=== PATIENT | female | born 1940 | race Two or more races ===

== ENCOUNTER 2019-03-01 12:41 | Emergency (ER) | payer MEDICARE, BC ==
[~2019-03-01] VITALS: Ht 154.9 cm; Wt 60.3 kg
[2019-03-01 13:33] LABS: Basophils # (auto) 0 uL; Basophils % (auto) 0.5 % (0.0-2.0); Eosinophils # (auto) 0.1 uL; Hematocrit 43.5 % (36.0-46.0); Hemoglobin 14.6 g/dL (12.2-16.2); Lymphocytes # (auto) 1.7 uL; Lymphocytes % (auto) 20.2 % (10.0-50.0); Mean Corpuscular Hemoglobin 31.1 pg (28.0-32.0); Mean Corpuscular Hgb Conc. 33.5 g/dL (32.0-36.0); Mean Corpuscular Volume 92.9 fL (80.0-100.0); Monocytes # (auto) 0.4 uL; Monocytes % (auto) 5.2 % (0.0-12.0); Neutrophils # (auto) 6.1 uL; Neutrophils % (auto) 73.1 % (37.0-80.0); Platelet Count (auto) 175 10^3/uL (140-450); Red Blood Cells 4.69 10^6/uL (4.0-5.20); Red Cell Distribution Width 15.1 % (11.8-14.3); White Blood Cell 8.3 10^3/uL (4.4-10.8)
[2019-03-01 13:53] LABS: Alanine Aminotransferase 24 U/L (13-56); Albumin 3.9 g/dL (3.4-5.0); Anion Gap 12 (5-15); Aspartate Aminotransferase 31 U/L (15-37); BUN/Creatinine Ratio 10.6; Blood Urea Nitrogen 13 mg/dL (7-18); Calcium 10.4 mg/dL (8.5-10.1); Carbon Dioxide 22 mmol/L (21-32); Chloride 107 mmol/L (98-107); GFR African American 55 mL/min; GFR Non-African American 45 mL/min; Glucose 224 mg/dL (74-106); Sodium 141 mmol/L (136-145)
[2019-03-01 13:54] LABS: INR 1.01 (0.9-1.15); Partial Thromboplastin Time 22.9 sec (23.64-32.05)
[2019-03-01 13:58] LABS: Alkaline Phosphatase 118 U/L (45-117); Bilirubin, Total 0.7 mg/dL (0.2-1.0); Total Protein 7.4 g/dL (6.4-8.2)
[2019-03-01] MEDS ORDERED: SODIUM CHLORIDE 0.9% 1,000 ML IV ONE (14:40)
[2019-03-01] MEDS ORDERED: DIPHENOXYLATE W/ATROPINE 2.5 MG TAB PO ONE (14:45)
[2019-03-01] MEDS ORDERED: ONDANSETRON ODT 4 MG TAB PO ONE (14:45)
[2019-03-01 17:23] VITALS: BP 130/72
== END 2019-03-01 17:25 | disposition home or self-care (01) ==
LOC: ER 12:48
DX: K52.9 Noninfective gastroenteritis and colitis, unspecified (principal)
CPT/HCPCS: 36415; 80053; 84484; 85025; 85610; 85730; 94761; 99283; Q0162